=== PATIENT | female | born 1955 | race Native Hawaiian/Other Pacific Islander ===

== ENCOUNTER 2018-05-11 18:08 | Emergency (ER) | payer SELFPAY ==
[~2018-05-11] VITALS: Ht 160 cm; Wt 110.0 kg
[~2018-05-11 18:08] MED LIST: ADVAI100I PO; ALBU0.086 INH; Z.0.NO CURRENT MEDS
[2018-05-11 18:25] VITALS: BP 125/57; PULSE 98; RESP 16; TEMP 97.7; O2SAT 96
--- NOTE | 2018-05-11 19:04 | RADRPT ---
EXAM DATE: 05/11/2018 6:49 PM EDT AGE/SEX: 62 years / Female INDICATIONS: Chest pain CLINICAL DATA: This is the patient's initial encounter. Patient reports that signs and symptoms have been present for 1 day and indicates a pain score of 3/10. MEDICAL/SURGICAL HISTORY: Diabetes mellitus type II. None. COMPARISON: No prior exams available for comparison. FINDINGS: The lungs are clear without infiltrate, nodule, or mass except for minimal linear scar and/or atelect asis bilaterally. There is no appreciable pleural effusion for technique. Heart and mediastinum are unremarkable. CONCLUSION: No acute cardiopulmonary disease. Electronically signed by: Baltazar Dickinson MD 05/11/2018 7:03 PM EDT
[2018-05-11 19:15] LABS: AUTOMATED NEUTROPHIL # 12.2 TH/MM3 (1.8-7.7); BASOPHIL # 0.1 TH/MM3 (0-0.2); BASOPHIL % 0.6 % (0.0-2.0); EOSINOPHIL # 0.1 TH/MM3 (0-0.4); EOSINOPHIL % 0.8 % (0.0-4.0); HEMOGLOBIN 14.3 GM/DL (11.6-15.3); LYMPH % 12.5 % (9.0-44.0); LYMPHOCYTE # 1.9 TH/MM3 (1.0-4.8); MEAN CELL VOLUME 86.5 FL (80.0-100.0); MEAN CORPUSCULAR HEMOGLOBIN 28.7 PG (27.0-34.0); MEAN CORPUSCULAR HGB CONC 33.2 % (32.0-36.0); MEAN PLATELET VOLUME 9.6 FL (7.0-11.0); MONO % 6.4 % (0.0-8.0); NEUT % 79.7 % (16.0-70.0); PLATELET COUNT 230 TH/MM3 (150-450); RED BLOOD COUNT 4.98 MIL/MM3 (4.00-5.30); RED CELL DISTRIBUTION WIDTH 13.8 % (11.6-17.2); WHITE BLOOD COUNT 15.3 TH/MM3 (4.0-11.0)
[2018-05-11 19:25] LABS: ALBUMIN 3.8 GM/DL (3.4-5.0); AST (GOT) 18 U/L (15-37); BICARBONATE 27.5 MEQ/L (21.0-32.0); BLOOD UREA NITROGEN 23 MG/DL (7-18); CALCIUM 9.3 MG/DL (8.5-10.1); CHLORIDE 103 MEQ/L (98-107); CREATININE 1.69 MG/DL (0.50-1.00); GLOMERULAR FILTRATION RATE 31 ML/MIN (>89); GLUCOSE,RANDOM 175 MG/DL (74-106); SODIUM (NA) 141 MEQ/L (136-145)
[2018-05-11 19:29] LABS: ALKALINE PHOSPHATASE 92 U/L (45-117); ALT (GPT) 27 U/L (10-53); TOTAL BILIRUBIN ADULT 0.3 MG/DL (0.2-1.0); TOTAL PROTEIN 7.7 GM/DL (6.4-8.2)
--- NOTE | 2018-05-11 21:38 | EKG ---
Date Performed: 05/11/2018 Time Performed: 18:36:06 PTAGE: 62 years EKG: Sinus rhythm NONSPECIFIC T-WAVE ABNORMALITY BORDERLINE ECG No significant change from prior electrocardiogram. DOCTOR: French Mckenna Interpretating Date/Time 05/11/2018 21:37:18
[2018-05-11 22:09] VITALS: BP 120/58; PULSE 98; RESP 20; O2SAT 96
[2018-05-11] MEDS ORDERED: SODIUM CHLORIDE 0.9% FLUSH 10 ML FLUSH IVF PRN (22:30)
[2018-05-11] MEDS ORDERED: SODIUM CHLOR 0.9% 1000 ML INJ 1,000 ML IV ONE (22:30)
[2018-05-11 22:41] VITALS: RESP 19; O2SAT 96
--- NOTE | 2018-05-11 22:52 | RADRPT ---
EXAM DATE: 05/11/2018 10:49 PM EDT AGE/SEX: 62 years / Female INDICATIONS: Right ankle swelling on and off for the past few years. Got worst recently. No known tr auma. CLINICAL DATA: This is the patient's initial encounter. Patient reports that signs and symptoms have been present for > 1 year and indicates a pain score of 5/10. MEDICAL/SURGICAL HISTORY: Diabetes mellitus type II. None. COMPARISON: No prior exams available for comparison. FINDINGS: No definite fractures, or dislocations are identified. No definite lytic or sclerotic lesion is seen . Soft tissue swelling is seen. Calcaneal spur is present at the attachment site of the plantar apon eurosis and Achilles tendon. There are hypertrophic and degenerative changes of the talonavicular guillermo int. CONCLUSION: Chronic changes and no definite fracture for technique. Electronically signed by: Baltazar Dickinson MD 05/11/2018 10:51 PM EDT
--- NOTE | 2018-05-11 22:55 | PD ---
HPI Chief Complaint: Cardiac Complaint Time Seen by Provider: 22:02 Travel History International Travel<30 days: No Contact w/Intl Traveler<30days: No Traveled to known affect area: No History of Present Illness HPI Patient is a 62-year-old female with history of hypertension and diabetes and tobacco abuse who presents the emergency room with multiple complaints. Patient reports that she was at work today, reports that she was standing when all of a sudden she felt dizzy, reports that she began to have bilateral shoulder pain with associated nausea with no vomiting. Patient reports that she felt blue flashes of light in front of her eyes, reports that symptoms lasted for about 20 minutes and then resolved on its own. Patient reports that nothing made symptoms better or worse, just time improved her symptoms. Patient reports that her friend checked her blood pressure and it was 57/30 with a heart rate of 119. Patient reports that she is feeling much better at this time. Patient reports no chest pain or shortness of breath, denies any headache or dizziness at this time. Patient with no history of similar symptoms in the past. Patient denies any fevers or chills, denies any cough or congestion. Patient denies any headache or dizziness while in the emergency room. PFSH Past Medical History Asthma: Yes Cardiovascular Problems: Yes Diabetes: Yes Diminished Hearing: No Musculoskeletal: Yes (LEFT FOOT SURG) Respiratory: Yes Integumentary: Yes (ECZEMA) Menopausal: Yes Social History Alcohol Use: Yes Tobacco Use: Yes (8 CIGS/DAY) Substance Use: Yes (OCCASS POT) Allergies-Medications (Allergen,Severity, Reaction): Coded Allergies: penicillin G (Unverified Allergy, Severe, UNKNOWN, 07/15/17) Sulfa (Sulfonamide Antibiotics) (Unverified Allergy, Mild, 07/15/17) unknown Reported Meds & Prescriptions Reported Meds & Active Scripts Active Advair Diskus 100/50 (Salmeterol Xinafoate/Fluticasone) Salmeterol/Fluticasone 50/100mcg Inh 1 Inhalation PO BID Reported Proventil Ud 0.083% (2.5 Mg/3 Ml) (Albuterol Sulfate) 2.5 Mg/3 Ml Inha 2.5 Mg INH Q4 2 puffs as needed every 5 hours No [facility] Meds (Miscellaneous Medication) [facility] General / Constitutional: No: Fever Eyes: Positive: Visual changes, No: Photophobia, Foreign Body Sensation, Pain, Tearing HENT: Positive: Lightheadedness, No: Headaches Cardiovascular: No: Chest Pain or Discomfort Respiratory: Positive: Shortness of Breath Gastrointestinal: No: Abdominal Pain Genitourinary: No: Dysuria Musculoskeletal: No: Pain Skin: No Rash Neurologic: Positive: Weakness, Dizziness, No: Headache Psychiatric: No: Depression Endocrine: No: Polydipsia Hematologic/Lymphatic: No: Easy Bruising Physical Exam Narrative GENERAL: NAD SKIN: Focused skin assessment warm/dry. HEAD: Atraumatic. Normocephalic. EYES: Pupils equal and round. No scleral icterus. No injection or drainage. ENT: No nasal bleeding or discharge. Mucous membranes pink and moist. NECK: Trachea midline. No JVD. CARDIOVASCULAR: Regular rate and rhythm. No murmur appreciated. RESPIRATORY: No accessory muscle use. Clear to auscultation. Breath sounds equal bilaterally. GASTROINTESTINAL: Abdomen soft, non-tender, nondistended. Hepatic and splenic margins not palpable. MUSCULOSKELETAL: No obvious deformities. No clubbing. No cyanosis. Patient with mild swelling and pain to right lateral malleolus NEUROLOGICAL: Awake and alert. No obvious cranial nerve deficits. Motor grossly within normal limits. Normal speech. PSYCHIATRIC: Appropriate mood and affect; insight and judgment normal. Data Data Last Documented VS Vital Signs Date Time Temp Pulse Resp B/P (MAP) Pulse Ox O2 Delivery O2 Flow Rate FiO2 05/11/18 22:41 19 96 Room Air 05/11/18 22:10 94 05/11/18 18:25 97.7 Orders Orders Electrocardiogram (05/11/18 ) Complete Blood Count With Diff (05/11/18 18:29) Comprehensive Metabolic Panel (05/11/18 18:29) Chest, Pa & Lat (05/11/18 ) Electrocardiogram (05/11/18 ) B-Type Natriuretic Peptide (05/11/18 22:17) Ckmb (Isoenzyme) Profile (05/11/18 22:17) D-Dimer (05/11/18 22:17) Magnesium (Mg) (05/11/18 22:17) Prothrombin Time / Inr (Pt) (05/11/18 22:17) Act Partial Throm Time (Ptt) (05/11/18 22:17) Troponin I (05/11/18 22:17) Lipase (05/11/18 22:17) Ecg Monitoring (05/11/18 22:17) Iv Access Insert/Monitor (05/11/18 22:17) Oximetry (05/11/18 22:17) Sodium Chloride 0.9% Flush (Ns Flush) (05/11/18 22:30) Orthostatic Vital Signs (05/11/18 22:17) Ankle, Complete ([id number]) (05/11/18 ) Sodium Chlor 0.9% 1000 Ml Inj (Ns 1000 M (05/11/18 22:30) Urinalysis - C+S If Indicated (05/11/18 22:18) CKMB (05/11/18 22:30) CKMB% (05/11/18 22:30) Ventilation & Perfusion Scan (05/11/18 ) Labs Laboratory Tests Test 05/11/18 18:30 05/11/18 22:30 White Blood Count 15.3 TH/MM3 Red Blood Count 4.98 MIL/MM3 Hemoglobin 14.3 GM/DL Hematocrit 43.0 % Mean Corpuscular Volume 86.5 FL Mean Corpuscular Hemoglobin 28.7 PG Mean Corpuscular Hemoglobin Concent 33.2 % Red Cell Distribution Width 13.8 % Platelet Count 230 TH/MM3 Mean Platelet Volume 9.6 FL Neutrophils (%) (Auto) 79.7 % Lymphocytes (%) (Auto) 12.5 % Monocytes (%) (Auto) 6.4 % Eosinophils (%) (Auto) 0.8 % Basophils (%) (Auto) 0.6 % Neutrophils # (Auto) 12.2 TH/MM3 Lymphocytes # (Auto) 1.9 TH/MM3 Monocytes # (Auto) 1.0 TH/MM3 Eosinophils # (Auto) 0.1 TH/MM3 Basophils # (Auto) 0.1 TH/MM3 CBC Comment DIFF FINAL Differential Comment Blood Urea Nitrogen 23 MG/DL Creatinine 1.69 MG/DL Random Glucose 175 MG/DL Total Protein 7.7 GM/DL Albumin 3.8 GM/DL Calcium Level 9.3 MG/DL Alkaline Phosphatase 92 U/L Aspartate Amino Transf (AST/SGOT) 18 U/L Alanine Aminotransferase (ALT/SGPT) 27 U/L Total Bilirubin 0.3 MG/DL Sodium Level 141 MEQ/L Potassium Level 4.3 MEQ/L Chloride Level 103 MEQ/L Carbon Dioxide Level 27.5 MEQ/L Anion Gap 11 MEQ/L Estimat Glomerular Filtration Rate 31 ML/MIN Prothrombin Time 10.0 SEC Prothromb Time International Ratio 1.0 RATIO Activated Partial Thromboplast Time 22.6 SEC D-Dimer Quantitative (PE/DVT) 0.83 MG/L FEU Magnesium Level 2.1 MG/DL Total Creatine Kinase 134 U/L Creatine Kinase MB 2.2 NG/ML Troponin I LESS THAN 0.02 NG/ML B-Type Natriuretic Peptide 14 PG/ML Lipase 243 U/L MDM Medical Decision Making Medical Screen Exam Complete: Yes Emergency Medical Condition: Yes Medical Record Reviewed: Yes Interpretation(s) Vital Signs Date Time Temp Pulse Resp B/P (MAP) Pulse Ox O2 Delivery O2 Flow Rate FiO2 05/11/18 22:41 19 96 Room Air 05/11/18 22:10 94 20 99 Room Air 05/11/18 22:09 98 20 120/58 (78) 96 Room Air 05/11/18 18:25 97.7 98 16 125/57 (79) 96 EKG at 1836: NSR at 94bpm, qt/qtc: 323/375, nonspecific t wave changes Differential Diagnosis ACS, arrhythmia, CVA, TIA, electrolyte abnormality, orthostatic hypotension Narrative Course During the course of the patients emergency department visit, the patients history, examination, and differential diagnosis were reviewed with the patient. The patient was placed on a compliance monitor with oximetry and frequent blood pressure monitoring. The patient had an IV access obtained and blood work sent for analysis. The patient was initially provided IVF. The patients laboratory studies were reviewed and remarkable for Laboratory Tests Test 05/11/18 18:30 05/11/18 22:30 White Blood Count 15.3 TH/MM3 (4.0-11.0) Red Blood Count 4.98 MIL/MM3 (4.00-5.30) Hemoglobin 14.3 GM/DL (11.6-15.3) Hematocrit 43.0 % (35.0-46.0) Mean Corpuscular Volume 86.5 FL (80.0-100.0) Mean Corpuscular Hemoglobin 28.7 PG (27.0-34.0) Mean Corpuscular Hemoglobin Concent 33.2 % (32.0-36.0) Red Cell Distribution Width 13.8 % (11.6-17.2) Platelet Count 230 TH/MM3 (150-450) Mean Platelet Volume 9.6 FL (7.0-11.0) Neutrophils (%) (Auto) 79.7 % (16.0-70.0) Lymphocytes (%) (Auto) 12.5 % (9.0-44.0) Monocytes (%) (Auto) 6.4 % (0.0-8.0) Eosinophils (%) (Auto) 0.8 % (0.0-4.0) Basophils (%) (Auto) 0.6 % (0.0-2.0) Neutrophils # (Auto) 12.2 TH/MM3 (1.8-7.7) Lymphocytes # (Auto) 1.9 TH/MM3 (1.0-4.8) Monocytes # (Auto) 1.0 TH/MM3 (0-0.9) Eosinophils # (Auto) 0.1 TH/MM3 (0-0.4) Basophils # (Auto) 0.1 TH/MM3 (0-0.2) CBC Comment DIFF FINAL Differential Comment Blood Urea Nitrogen 23 MG/DL (7-18) Creatinine 1.69 MG/DL (0.50-1.00) Random Glucose 175 MG/DL (74-106) Total Protein 7.7 GM/DL (6.4-8.2) Albumin 3.8 GM/DL (3.4-5.0) Calcium Level 9.3 MG/DL (8.5-10.1) Alkaline Phosphatase 92 U/L (45-117) Aspartate Amino Transf (AST/SGOT) 18 U/L (15-37) Alanine Aminotransferase (ALT/SGPT) 27 U/L (10-53) Total Bilirubin 0.3 MG/DL (0.2-1.0) Sodium Level 141 MEQ/L (136-145) Potassium Level 4.3 MEQ/L (3.5-5.1) Chloride Level 103 MEQ/L (98-107) Carbon Dioxide Level 27.5 MEQ/L (21.0-32.0) Anion Gap 11 MEQ/L (5-15) Estimat Glomerular Filtration Rate 31 ML/MIN (>89) Prothrombin Time 10.0 SEC (9.8-11.6) Prothromb Time International Ratio 1.0 RATIO Activated Partial Thromboplast Time 22.6 SEC (24.3-30.1) D-Dimer Quantitative (PE/DVT) 0.83 MG/L FEU (0.00-0.50) Magnesium Level 2.1 MG/DL (1.5-2.5) Total Creatine Kinase 134 U/L (26-192) Creatine Kinase MB 2.2 NG/ML (0.5-3.6) Troponin I LESS THAN 0.02 NG/ML B-Type Natriuretic Peptide 14 PG/ML (0-100) Lipase 243 U/L (73-393) Radiology studies were reviewed and remarkable for Last Impressions Chest X-Ray 05/11/18 0000 Signed Impressions: CONCLUSION: No acute cardiopulmonary disease. Ankle X-Ray 05/11/18 0000 Signed Impressions: CONCLUSION: Chronic changes and no definite fracture for technique. Patient with a positive d.dimer, discussed need for VQ Scan - patient refuses I reviewed all labs and all studies with patient including x-rays, CT as well as VQ scan was pending. Patient currently refusing further workup. Patient's creatinine is elevated at 1.69, initial troponin 0.02. I did discuss with patient need to be admitted to the hospital for observation as symptoms could be cardiac in nature as she has nonspecific T-wave changes on EKG. Patient does not want any further workup, refuses admission to the hospital and requests to leave AGAINST MEDICAL ADVICE. Patient reports that she does not have the luxury for further testing and for admission to the hospital as she does need to go to work tomorrow. AMA: The risks of leaving against medical advice without further evaluation treatment were discussed with the patient. These risks include cardiac dysfunction, cardiac dysrhythmia, possible heart attack, possible stroke or . The patient indicated understanding of these risks and appeared to have the capacity to make this decision. Patient understands need to follow-up with her primary care doctor as soon as possible, she understands that she may return to the emergency room at any time for reevaluation of her symptoms. Diagnosis Primary Impression: Left against medical advice Additional Impressions: Renal insufficiency Abnormal EKG Dizziness Patient Instructions: General Instructions Additional Instructions: You may return to the ER at any time for evaluation of your symptoms Please follow up with your primary care doctor as soon as possible Disposition: 07 AGAINST MEDICAL ADVICE Condition: Serious Malinda Dietz DO May 11, 2018 22:55
[2018-05-11 22:58] LABS: D-DIMER 0.83 MG/L FEU (0.00-0.50)
[2018-05-11 23:01] LABS: MAGNESIUM 2.1 MG/DL (1.5-2.5)
[2018-05-11 23:04] LABS: TROPONIN I LESS THAN 0.02 NG/ML (0.02-0.05)
== END 2018-05-12 01:11 | disposition left against medical advice (07) ==
LOC: NEPC 18:08
DX: N28.9 Disorder of kidney and ureter, unspecified (principal); R42 Dizziness and giddiness; R94.31 Abnormal electrocardiogram [ECG] [EKG]; F17.210 Nicotine dependence, cigarettes, uncomplicated; F12.90 Cannabis use, unspecified, uncomplicated; J45.909 Unspecified asthma, uncomplicated; R07.9 Chest pain, unspecified
CPT/HCPCS: 71046; 73610; 80053; 82550; 82552; 83690; 83735; 83880; 84484; 85025; 85379; 85610; 85730; 93005; 99285; J7030